=== PATIENT | female | born 1960 | race African-American/Black ===

== ENCOUNTER → 2016-11-30 | Outpatient (CLI) | payer OTHER ==
[~2016-11-30] MED LIST: BACTRIM DS TABL1 TA1 PO; BYSTOLIC5 MG; BYSTOLIC5 MG PO; CLARITIN D PO; CLARITIN10 M2; CLARITIN10 M2 PO; COREG6.25 MG PO; FLAGYL PO; IBUPROFEN800 MG; LEVAQUIN PO; LORTAB 10-5001 EACH PO; LOVAZA1 G PO; METOPROLOL SUC PO; METOPROLOL TAR25 MG PO; NORVASC10 MG PO; PRILOSEC; PRILOSEC OTC PO; PRILOSEC PO; PROTONIX PO; PYRIDIUM PO; ZESTRIL5 MG PO; ZOCOR PO; [UNRECOGNIZED DRUG - REMARK]
--- NOTE | ~2016-11-30 | CR63 ---
[facility] Service of [facility] RADIOLOGY TEXT RESULTS PATIENT: WILFRED RENO LOCATION: [facility] : 60 UNIT #: [id number] AGE: [address]: Fabiola Quinn MD SEX: F ORDER DR: [id number] [facility] [address] [place], [place] [address] [id number] O MR#: [id number] Acc #: [id number] NAME: WILFRED RENO : 1960 SEX: F STUDY DATE/TIME: 11/30/2016 13:40 UNIT: [facility] ROOM: STUDY DESCRIPTION: CR Chest 2 View Attending Physician: Fabiola Quinn M.D. Referring Physician: Fabiola Quinn M.D. Ordering Physician: Fabiola Quinn M.D. Primary Care Physician: Fabiola Quinn M.D. MEDICAL IMAGING REPORT This report is preliminary unless electronic signature is present EXAM PA and lateral chest. INDICATION Cough for 5 days. COMPARISON STUDIES Comparison with 06/01/2016. FINDINGS The lungs are well expanded and clear. Heart size stable. Visualized osseous structures are unremarkable. IMPRESSION No active disease. Dictated by... Sang Collins M.D. THIS IS AN ELECTRONICALLY VERIFIED REPORT Sang Collins M.D. at 12/02/2016 5:13 PM CHRISTOPHER/aidee TD: 11/30/2016 17:22 JOB #: [id number] MEDICAL IMAGING REPORT Page 1 of 1 COPY
== END | disposition home or self-care (01) ==
LOC: CRAD 12:56
DX: J20.9 Acute bronchitis, unspecified (principal)
CPT/HCPCS: 71020

== ENCOUNTER → 2016-12-28 | Outpatient (CLI) | payer OTHER ==
--- NOTE | ~2016-12-28 | MY11 ---
[facility] A Service of [facility] RADIOLOGY TEXT RESULTS PATIENT: WILFRED RENO LOCATION: [facility] : 60 UNIT #: [id number] AGE: [address]: Fabiola Quinn MD SEX: F ORDER DR: [id number] [facility] [address] [place], [place] [address] [id number] O MR#: [id number] Acc #: [id number] NAME: WILFRED RENO : 1960 SEX: F STUDY DATE/TIME: 12/28/2016 9:52 UNIT: [facility] ROOM: STUDY DESCRIPTION: MY Mammogram Screening Dig Hilario Attending Physician: Fabiola Quinn M.D. Ordering Physician: Fabiola Quinn M.D. Primary Care Physician: Fabiola Quinn M.D. MEDICAL IMAGING REPORT This report is preliminary unless electronic signature is present EXAM Digital screening mammogram 12/28/2016. HISTORY A 56-year-old woman no risk elevation. Previous right breast biopsy. Annual screening. COMPARISON STUDIES 12/18/2005 with most recent comparison 11/07/2014 FINDINGS Digital imaging of each breast was completed utilizing a two-view examination of each breast in craniocaudal and mediolateral-oblique projections. Review and interpretation of digital mammograms include a second review in conjunction with FDA-approved CAD device. There is a normal parenchymal presentation bilaterally consistent with the patient's age. There are no breast masses imaged and no parenchymal asymmetry is visualized. There are no suspicious microcalcifications and I see no focal architectural disturbance. IMPRESSION Negative screening digital mammogram. One-year followup recommended. Patients over the age of 40 are entered into a reminder system with target due date for the next mammogram. A result letter will also be sent to the patient. BIRADS: 1 Negative Dictated by... [facility] A Service of [facility] RADIOLOGY TEXT RESULTS PATIENT: WILFRED RENO LOCATION: [facility] : 60 UNIT #: [id number] AGE: [address]: Fabiola Quinn MD SEX: F ORDER DR: Sebastian Katz M.D. THIS IS AN ELECTRONICALLY VERIFIED REPORT Sebastian Katz M.D. at 12/28/2016 2:25 PM Ginger TD: 12/28/2016 12:55 JOB #: [id number] MEDICAL IMAGING REPORT Page 1 of 1 COPY
== END | disposition home or self-care (01) ==
LOC: CWCC 09:15
DX: Z12.31 Encounter for screening mammogram for malignant neoplasm of breast (principal); Z98.890 Other specified postprocedural states
CPT/HCPCS: G0202